=== PATIENT | female | born 1970 | race Caucasian/White ===

== ENCOUNTER 2021-09-19 08:56 | Emergency (ER) | payer MEDICAID, SELFPAY ==
[2021-09-19 09:03] VITALS: BP 123/86; PULSE 86; RESP 16; TEMP 36.5; O2SAT 100
[2021-09-19] MEDS: ONDANSETRON HCL ODT 4 MG TABLET PO (10:01)
--- NOTE | 2021-09-19 10:03 | ED.GENADULT ---
HPI - General Adult General Chief complaint: Upper Respiratory Infection Stated complaint: fever/vomiting/covid exposure Time Seen by Provider: 09/19/21 09:20 Source: patient Mode of arrival: ambulatory Limitations: no limitations History of Present Illness HPI narrative: Patient is a 50-year-old, Covid unvaccinated female, presenting with chief complaint of 4 days of headache, congestion, body aches and nausea. Patient reports that she has been exposed to a Covid coworker. Patient reports nausea, but she has not had persistent vomiting or diarrhea. She denies having abdominal pain. She reports she has had decreased appetite but she is able to keep down fluids. Patient denies chest pain or shortness of breath. Patient denies any emergent symptoms. Related Data Home Medications Medication Instructions Recorded Confirmed albuterol sulfate INHALATION 09/19/21 bupropion HCl PO 09/19/21 cetirizine mg 09/19/21 09/19/21 cyclobenzaprine mg 09/19/21 epinephrine 09/19/21 hydroxyzine HCl 09/19/21 trazodone 09/19/21 Allergies Allergy/AdvReac Type Severity Reaction Status Date / Time ampicillin Allergy Unknown Nausea And Verified 09/23/18 10:55 Vomiting oxycodone [From OxyContin] Allergy Nausea and Verified 09/19/21 09:57 Vomiting Review of Systems Review of Systems: CONSTITUTIONAL: Reports body aches denies fever, chills, or sweats. EYES: Denies visual changes, redness, or discharge. ENT: Reports rhinorrhea, congestion, sore throat, denies otalgia. CARDIOVASCULAR: Denies chest pain, palpitations, or edema. RESPIRATORY: Reports cough denies dyspnea. GASTROINTESTINAL: Denies abdominal pain, nausea, vomiting, or diarrhea. GENITOURINARY: Denies dysuria or hematuria. SKIN: Denies rash or itching. MUSCULOSKELETAL: Denies back pain, joint pain, or myalgia. NEUROLOGIC: Reports resolved headache, denies numbness, dizziness, or weakness. PSYCHIATRIC: Denies anxiety or depression. PMFSH Social History Social History Smoking status: Heavy tobacco smoker Alcohol intake: current Exam Narrative: GENERAL: Well-appearing, well-nourished, and in no acute distress. Nontoxic in appearance. HEAD: Normocephalic, atraumatic. EYES: PERRLA and EOMI. CHEST: Clear to auscultation. No respiratory distress. No wheezes rales or rhonchi. No tachypnea. Speaking in clear sentences without difficulty. HEART: Regular rate and rhythm. SKIN: Warm, dry, no rash. NEURO: No focal deficits. Alert and oriented x3. PSYCH: Normal mood and affect. Course Vital Signs Vital signs: Vital Signs Temperature 97.7 F 09/19/21 09:03 Pulse Rate 86 09/19/21 09:03 Respiratory Rate 16 09/19/21 09:03 Blood Pressure 123/86 09/19/21 09:03 Pulse Oximetry 100 09/19/21 09:03 Temperature 97.7 F 09/19/21 09:03 Pulse Rate 86 09/19/21 09:03 Respiratory Rate 16 09/19/21 09:03 Blood Pressure 123/86 09/19/21 09:03 Pulse Oximetry 100 09/19/21 09:03 Medical Decision Making MDM Narrative Medical decision making narrative: Patient complains of nausea but has not had vomiting or diarrhea. Patient has been able to tolerate p.o. fluids. Patient does not appear dehydrated. patient vitals are stable. Patient not hypoxic or toxic. Patient tested for Covid and given quarantine instructions and return ER instructions. Differential Diagnosis Differential Diagnosis: Covid, pneumonia, influenza, viral illness Vital Signs Vital Signs: Vital Signs Temperature 97.7 F 09/19/21 09:03 Pulse Rate 86 09/19/21 09:03 Respiratory Rate 16 09/19/21 09:03 Blood Pressure 123/86 09/19/21 09:03 Pulse Oximetry 100 09/19/21 09:03 Temperature 97.7 F 09/19/21 09:03 Pulse Rate 86 09/19/21 09:03 Respiratory Rate 16 09/19/21 09:03 Blood Pressure 123/86 09/19/21 09:03 Pulse Oximetry 100 09/19/21 09:03 Discharge Plan Discharge Clinical Impression: Person under investigation for COVID-19 P
[2021-09-19 20:50] LABS: SARS-CoV-2 RNA PCR Negative
== END 2021-09-19 11:17 | disposition home or self-care (01) ==
PROVIDERS: Physician Assistant; Emergency Provider Emergency Medicine
DX: Z20.822 Contact with and (suspected) exposure to COVID-19 (principal); F17.210 Nicotine dependence, cigarettes, uncomplicated; R51.9 Headache, unspecified; R11.0 Nausea
CPT/HCPCS: 99283; A9270; C9803; U0003; U0005